=== PATIENT | female | born 1980 | race Caucasian/White ===

== ENCOUNTER 2020-03-15 06:47 | Day surgery (SDC) | payer OTHER ==
[~2020-03-15] VITALS: Ht 165.1 cm; Wt 56.7 kg
[~2020-03-15 06:47] MED LIST: WELLBUTRIN SR150 MG PO; ZOLOFT100 MG PO
[2020-03-15 07:18] LABS: HEMATOCRIT 32.5 % (36.0-48.0); HEMOGLOBIN 10.6 g/dL (12-16); MCH 29.5 pg (26.0-34.0); MCHC 32.6 g/dL (31.0-37.0); MCV 90.5 fL (80.0-100.0); MEAN PLATELET VOLUME 9.3 fL (7.4-10.4); RBC 3.59 10x6/uL (4.00-5.40); RDW 13.4 % (11.5-14.5); WBC 4.3 10x3/uL (4.8-10.8)
[2020-03-15 07:37] LABS: HCG SERUM NEGATIVE (NEGATIVE)
[2020-03-15 08:01] VITALS: BP 117/88; Ht 165.1 cm; Wt 56.7 kg
--- NOTE | 2020-03-15 12:44 | NUR ---
1245 ASSISTED TO BATHROOM AND VOIDED X1 MEDICATED FOR PAIN 11/22
--- NOTE | 2020-03-15 13:14 | NUR ---
1315 MED IV TORDOL 30MG PAIN
--- NOTE | 2020-03-15 14:06 | NUR ---
1345 IV REMOVED PAIN 07/25 AFTER TORDOL
--- NOTE | 2020-03-19 09:08 | OP ---
PATIENT NAME: JODI OGLESBY MEDICAL RECORD: [id number] :81 LOCATION:[facility] ADMISSION DATE: SURGEON: PHYLLIS BRADY MD DATE OF OPERATION: 03/15/2020 PREOPERATIVE DIAGNOSES: 1. Left knee pain. 2. Osteochondral defect, lateral facet of the patella. 3. Medial plica. POSTOPERATIVE DIAGNOSES: 1. Left knee pain. 2. Osteochondral defect, lateral facet of the patella. 3. Medial plica. PROCEDURE PERFORMED: Left knee scope with chondroplasty and limited synovectomy. INDICATIONS FOR THE PROCEDURE: Ms. Oglesby is a 40-year-old female with history of left knee pain and catching now for the last couple of months. She had injured her knee when she was playing wrestling with her and her knee buckled. She had pain and mechanical symptoms of catching and giving out ever since. MRI shows evidence of damage to the lateral facet of the patella as well as medial plica. Arrangements were made for her to come to the operating room today for a knee arthroscopy. Risks, benefits and alternatives of surgery were discussed with the patient and consent was obtained. DESCRIPTION OF PROCEDURE: The patient was met in the holding area where her identity and confirmation of procedure was performed. The left lower extremity was marked. She was taken to the operating room where she was placed supine on the operating table and anesthesia was administered. Tourniquet was applied to left thigh and left leg was positioned in the leg perdomo. Left lower extremity was prepped and draped in a sterile fashion. The patient received preoperative antibiotics and timeout was performed before initiating the case. On initiation of the case, the leg was exsanguinated and the tourniquet was raised. Total tourniquet time was approximately 25 minutes. We began with placement of her superior medial portal and we inserted the cannula and filled the knee with fluid. We then placed our anterolateral portal, inserted our camera and placed our anterior medial portal under direct visualization. Diagnostic knee arthroscopy was then performed. The patella was noted to have a defect of the lateral facet with a full thickness involvement of the cartilage with grade IV chondromalacia. There was a medial plica present. The medial and lateral compartments were in good condition. The ACL was intact. We moved back to the patellofemoral joint and performed chondroplasty at the undersurface of the patella at the lateral facet. A probe was used to assess this injury and again there was full thickness involvement down to the bone. We then used the shaver to perform a limited synovectomy of the medial plica. Cartilage harvest was performed at the lateral border of the notch for anticipated an AC procedure in the future. Before and after images were obtained and this completed our procedure. Instruments were removed. Fluid was drained from the knee. Portal sites were closed with nylon suture and a sterile dressing was applied. The patient was turned back over to anesthesia where she was awakened, extubated, and taken to recovery room in stable condition. POSTOPERATIVE PLAN: The patient is going to return home with her family stay. OPERATIVE REPORT [id number] RENYJODI Gerardo She may be weightbearing as tolerated on the left leg and may use crutches as needed. Plan to get her started with physical therapy early next week. We will see her back in clinic in few weeks. ANESTHESIA: General. SPECIMENS: None. ESTIMATED BLOOD LOSS: 5 mL. TRANSINT:[id number] Voice Confirmation ID: [id number] DOCUMENT ID: [id number] PHYLLIS BRADY MD at 0908 CC: [id number] DICTATION DATE: 03/15/20 1134 DRAGLINE OILER: 03/15/20 1928 [facility] 03/15/20 [facility] [address] [place] [address]
== END 2020-03-15 14:00 | disposition home or self-care (01) ==
LOC: D.OPS 06:47
PROVIDERS: Anesthesiology; ATTEND Orthopaedic Surgery
DX: M25.562 Pain in left knee (principal); M22.42 Chondromalacia patellae, left knee; M67.52 Plica syndrome, left knee; M95.8 Other specified acquired deformities of musculoskeletal system

== ENCOUNTER 2020-08-30 09:10 | Day surgery (SDC) | payer OTHER ==
[2020-08-27 16:40] LABS: HEMOGLOBIN 11.5 g/dL (12-16); MCH 28.4 pg (26.0-34.0); MCHC 32.9 g/dL (31.0-37.0); MCV 86.4 fL (80.0-100.0); MEAN PLATELET VOLUME 9.5 fL (7.4-10.4); RBC 4.05 10x6/uL (4.00-5.40); RDW 13.6 % (11.5-14.5); WBC 5.3 10x3/uL (4.8-10.8)
[~2020-08-30] VITALS: Ht 165.1 cm; Wt 56.7 kg
--- NOTE | ~2020-08-30 | OP ---
PATIENT NAME: JODI OGLESBY MEDICAL RECORD: [id number] :82 LOCATION:[facility] ADMISSION DATE: SURGEON: PHYLLIS BRADY MD DATE OF OPERATION: 08/30/2020 PREOPERATIVE DIAGNOSIS: Osteochondral defect, patella, left knee. POSTOPERATIVE DIAGNOSIS: Osteochondral defect, patella, left knee. PROCEDURE PERFORMED: Autologous chondrocyte implantation patella, left knee (RICARDA procedure). INDICATIONS: Ms. Oglesby is a 40-year-old female with history of left knee pain and mechanical symptoms. Knee scope from last year showed osteochondral defect in the lateral facet of the patella. She went through rehab and did well initially, but then again developed worsening pains in her knee. She returns for RICARDA procedure to repair the lateral patellar defect. Risks, benefits, and alternatives of surgery were discussed with the patient and consent was obtained. DESCRIPTION OF PROCEDURE: The patient was met in the holding area where her identity and confirmation of procedure was performed. Left lower extremity was marked. She was taken to the operating room where she was placed supine on the operating table, and anesthesia was administered. Tourniquet was applied to the left leg and left leg was prepped and draped in a sterile fashion. The patient received preoperative antibiotics and timeout was performed before initiating the case. On initiation of the case, leg was exsanguinated and the tourniquet was raised. Total tourniquet time was 60 minutes. A medial parapatellar approach was utilized for exposure. We incised through the skin and subcutaneous tissues over the anterior knee, dissected down to the extensor mechanism. The quad tendon was then split along its medial border at the superior pole of the patella curving medially around the patella and down the medial border of the patellar tendon. The capsule was released back to the tibia. We were then able to jewel the patella to allow for full visualization of the lateral facet. The cartilage was noted to have a full thickness defect in this area. The circular punch was able to be used to circumferentially remove this defect. It was positioned over the defect and pushed through the cartilage to the subchondral bone. We were able to establish circumferential cut in the cartilage at this level. The inner area of the damaged cartilage was then removed with a ring curette down to the subchondral bone. Once this was completed, we then performed our RICARDA implantation. A small amount of fibrin glue was applied to the exposed area. The patch was then laid in place and covered over the top with another layer of the fibrin glue. It was given 4 minutes to adequately dry. This provided good coverage of our defect. We then irrigated the knee thoroughly with saline. The extensor mechanism was then closed with 0 Vicryl suture. The subcutaneous tissues were infiltrated with 0.25% Marcaine. The subcutaneous tissue was closed with 3-0 Vicryl and the skin edges were closed with a 3-0 Monocryl. A Prineo Dermabond dressing was then placed over the anterior knee. Sterile dressing was placed. The patient was placed into a hinged knee brace locked in extension. She was then turned back over to anesthesia where she was awakened, extubated, and taken to recovery room in stable condition. POSTOPERATIVE PLAN: The patient is going to return home with her family today. She needs to remain in the knee brace at all times, locked in extension, but may OPERATIVE REPORT [id number] JODI OGLESBY begin some gentle range of motion with therapy per protocol. Touchdown weightbearing left lower extremity in the knee brace. We will see her back in clinic in 1 week. COMPLICATIONS: None. ESTIMATED BLOOD LOSS: 10 mL. ANESTHESIA: General with peripheral nerve block. TRANSINT:[id number] Voice Confirmation ID: [id number] DOCUMENT ID: [id number] PHYLLIS BRADY MD CC: [id number] DICTATION DATE: 08/30/20 1630 [employer]: 08/30/202216 [facility] 08/30/20 [facility] [address] [place] [address]
[2020-08-30 10:10] VITALS: BP 123/80; Ht 165.1 cm; Wt 56.7 kg
[2020-08-30 10:23] LABS: HCG URINE NEGATIVE (NEGATIVE)
--- NOTE | 2020-08-30 17:32 | NUR ---
PT AWAKE AND ALERT AND READY TO GO HOME. IV D/C'D WITH CANNULA INTACT, PRESSURE HELD AND DRSG PLACED. DISCHARGE INSTRUCTIONS GIVEN TO PT AND MOTHER AND BOTH VERBALIZED AN UNDERSTANDING. DENIES PAIN AND EFFECTIVE NERVE BLOCK.
== END 2020-08-30 17:15 | disposition home or self-care (01) ==
LOC: D.OPS 09:10
PROVIDERS: Anesthesiology; ATTEND Orthopaedic Surgery
DX: M22.42 Chondromalacia patellae, left knee (principal); M25.562 Pain in left knee